=== PATIENT | male | born 1975 | race Two or more races ===

== ENCOUNTER 2016-09-12 23:26 | Emergency (ER) | payer SELFPAY ==
[~2016-09-12] VITALS: Ht 160 cm; Wt 88.0 kg
[2016-09-13 00:11] VITALS: BP 155/87
[2016-09-13] MEDS ORDERED: VITAMIN C500 M1 ORAL (00:14)
[2016-09-13] MEDS ORDERED: IBUPROFEN600 MG ORAL (00:14)
[2016-09-13] MEDS ORDERED: Ketorolac 60mg Inj IM ONE (00:15)
[2016-09-13 00:31] VITALS: BP 155/87
--- NOTE | 2016-09-13 05:50 | Emergency Room Report ---
History of Present Illness General Chief Complaint: Pain Source: Patient Present Illness HPI Patient 40-year-old male presented after increased right knee pain. Patient reports having gradual onset of symptoms. He denies recent trauma. He had an not been having any fever. Reportedly patient works requiring antibiotics need for a times throughout the day. He had gradual onset of swelling to the knee. He denied any pain to the knee previously. He had not been taking any medications other than ibuprofen. Allergies: Coded Allergies: No Known Allergies (Unverified , 09/12/16) Patient History Past Medical History: see triage record Reviewed Nursing Documentation: PMH: Agreed, PSxH: Agreed Nursing Documentation-PMH Past Medical History: No Stated History Review of Systems All Other Systems: negative except mentioned in HPI Physical Exam Vital Signs Date Time Temp Pulse Resp B/P Pulse Ox O2 Delivery O2 Flow Rate FiO2 09/12/16 23:55 98.1 66 18 155/87 100 Room Air General Appearance: well appearing, no apparent distress, alert, GCS 15 Head: normocephalic, atraumatic ENT: hearing grossly normal, normal voice Neck: full range of motion, supple Respiratory: no respiratory distress, speaking full sentences Musculoskeletal: no calf tenderness, swelling - prepatellar, no laxity or warmth Neurologic: normal gait Psychiatric: mood/affect normal Skin: no rash Medical Decision Making Diagnostic Impression: Primary Impression: Prepatellar bursitis ER Course Patient presented for knee pain. Differential diagnosis included was not limited to prepatellar bursitis, popliteal aneurysm, arthritis, dislocation, ligamentous injury, septic joint among others. Patient's benign exam and does not appear to require any further imaging or laboratory testing at this time. The patient was placed in an Abraham wrap. He was given IM anti-inflammatory medication to The patient is advised to follow up with primary care doctor in 1 -2 days. Patient is advised to return if any worsening condition or if any changes in status that are concerning. Last Vital Signs Date Time Temp Pulse Resp B/P Pulse Ox O2 Delivery O2 Flow Rate FiO2 09/13/16 00:31 98.1 18 155/87 100 Room Air 09/12/16 23:55 66 Status: improved Disposition: HOME, SELF-CARE Condition: Stable Scripts Ascorbic Acid* (VITAMIN C*) 500 Mg Tablet 500 MG ORAL TWICE A DAY, #30 TAB Prov: Eduardo Gonzalez 09/13/16 Ibuprofen* (MOTRIN*) 600 Mg Tablet 600 MG ORAL Q8H Y for For Pain, #30 TAB 0 Refills Prov: Eduardo Gonzalez 09/13/16 Referrals: NOT CHOSEN IPA/,REFERRING (PCP) Patient Instructions: Prepatellar Bursitis With [facility] Eduardo Gonzalez Sep 13, 2016 05:50
== END 2016-09-13 00:31 | disposition home or self-care (01) ==
LOC: EMR 09-13 00:31
DX: M70.41 Prepatellar bursitis, right knee (principal)
CPT/HCPCS: 29530; 96372; 99283